=== PATIENT | female | born 1975 | race African-American/Black ===

== ENCOUNTER 2017-07-15 12:13 | Emergency (ER) | payer MEDICAID ==
[~2017-07-15] VITALS: Ht 152.4 cm; Wt 67.7 kg
[2017-07-15] MEDS ORDERED: IBUPROFEN 600MG TABLET PO ONE (13:45)
[2017-07-15 14:27] LABS: CLARITY URINE CLEAR (CLEAR); COLOR URINE YELLOW (YELLOW); GLUCOSE URINE NEGATIVE (NEGATIVE); KETONES URINE NEGATIVE (NEGATIVE); LEUKOCYTE ESTERASE URINE NEGATIVE (NEGATIVE); NITRITE URINE NEGATIVE (NEGATIVE); OCCULT BLOOD URINE TRACE (NEGATIVE); PH URINE 5.5 (4.5-8.0); PROTEIN URINE NEGATIVE (NEGATIVE); SPECIFIC GRAVITY URINE 1.012 (1.005-1.030); UROBILINOGEN URINE 0.2 E.U./dL (0.2-1.0)
[2017-07-15 14:32] VITALS: BP 159/82
== END 2017-07-15 16:05 | disposition home or self-care (01) ==
LOC: ER 12:40
DX: M54.9 Dorsalgia, unspecified (principal); L30.9 Dermatitis, unspecified; I10 Essential (primary) hypertension; F17.200 Nicotine dependence, unspecified, uncomplicated
CPT/HCPCS: 74176; 81001; 81025; 99285

== ENCOUNTER 2017-07-29 11:14 | Emergency (ER) | payer MEDICAID ==
[~2017-07-29] VITALS: Ht 152.4 cm; Wt 66.0 kg
[2017-07-29] MEDS ORDERED: METHOCARBAMOL 500MG TABLET PO ONE (12:00)
[2017-07-29] MEDS ORDERED: KETOROLAC 30MG/ML VIAL IM ONE (12:00)
[2017-07-29] MEDS ORDERED: NAPROXEN 500MG TABLET PO ONE (12:15)
[2017-07-29 12:38] VITALS: BP 162/83
== END 2017-07-29 12:42 | disposition home or self-care (01) ==
LOC: ER 11:44
DX: M54.10 Radiculopathy, site unspecified (principal); M25.511 Pain in right shoulder; I10 Essential (primary) hypertension; F17.200 Nicotine dependence, unspecified, uncomplicated
CPT/HCPCS: 99283; J1885